=== PATIENT | male | born 1990 | race Caucasian/White ===

== ENCOUNTER 2020-08-24 13:04 | Outpatient (REF) | payer OTHER, SELFPAY | END 2020-08-24 13:05 | disposition home or self-care (01) | LOC: HO.LAB 13:04 | PROVIDERS: PCP Internal Medicine; Visit Provider Internal Medicine | DX: Z20.828 Contact with and (suspected) exposure to other viral communicable diseases (principal) | CPT/HCPCS: C9803; U0003 ==

== ENCOUNTER 2020-10-31 07:53 | Outpatient (REF) | payer OTHER, SELFPAY | END 2020-10-31 07:54 | disposition home or self-care (01) | LOC: HO.LAB 07:53 | PROVIDERS: Visit Provider Internal Medicine | DX: Z20.822 Contact with and (suspected) exposure to COVID-19 (principal) | CPT/HCPCS: 36415; C9803; U0003 ==

== ENCOUNTER 2020-11-24 08:48 | Outpatient (REF) | payer OTHER, SELFPAY | END 2020-11-24 08:49 | disposition home or self-care (01) | LOC: HO.LAB 08:48 | PROVIDERS: Visit Provider Internal Medicine | DX: Z20.822 Contact with and (suspected) exposure to COVID-19 (principal) | CPT/HCPCS: 36415; C9803; U0003; U0005 ==

== ENCOUNTER 2024-05-25 14:57 | Outpatient (AMB) | payer OTHER, SELFPAY ==
--- NOTE | 2024-05-25 15:11 | A.OFFPC_ITS ---
Vital Signs 05/25/24 15:20 Height 5 ft 11 in Weight 299 lb 6 oz BMI 41.7 BP 120/80 Blood Pressure Location Rt brachial Position Sitting Respiration 16 Pulse 88 Pulse Source Pulse Oximeter Temp 98 F Temp Source Tympanic Pulse Oximetry (%) 95 Oxygen Delivery Method Room Air Intake Visit Reasons: Re establish care/?Kidney Stone Intake Note: possible kidney stones pt was on a plane and felt a pop sensation while urinated on the plane then had a steady urine stream.lower left side back pain [id number]. Allergies Environmental/pollen Allergy (Unknown, Uncoded 10/17/20 09:53) Unknown Tobacco use date assessed: 05/25/24 Dental Screening Dental Screen Date: 05/25/24 Did you have a dental visit in the last 12 months?: Yes Did you have a dental problem in the last 6 months where you did not have access to dental care?: Yes Was dental information given to patient?: Patient has dentist HPI Re establish care/?Kidney Stone HPI Details New Patient? ?? Prior PCP:? [facility] Last office visit/CPE:? 3 yrs + Acute issue(s):? ? kidney stone ?? PMHx:? None SurgHx:? None FHx:? Mom: HTN, Kidney stones. Dad: unknown SocHx: No cigs. EtOH Rare 1-2 dr. OVERTON daily. No other drugs PFSH Surgical History (Updated 10/17/20 @ 09:53 by Adriana Fierro) No pertinent past surgical history Family History (Updated 10/17/20 @ 10:00 by Adriana Fierro) Father Medical history unknown Mother Hypertension Kidney stone Social History (Updated 05/25/24 @ 15:16 by Gwendolyn Rodriguez) Housing: Apartment Patient Tobacco Use Status: Never used Tobacco e-Cigarette/Vaping Use: Never Used Second Hand Smoke Exposure: No Use of substances other than those prescribed or required for medical reasons: Yes Substance Use Type: Marijuana service: No Current occupational status: employed Current occupation: retail Current occupational exposures/hazards: No Cognitive needs: No Hearing needs: Yes Vision needs: Yes Questionnaire PHQ-9 Over the last 2 weeks, how often have you been bothered by any of the following problems? 1. Little interest or pleasure in doing things: not at all 2. Feeling down, depressed, or hopeless: not at all 3. Trouble falling or staying asleep, or sleeping too much: not at all 4. Feeling tired or having little energy: not at all 5. Poor appetite or overeating: not at all 6. Feeling bad about yourself - or that you are a failure or have let yourself or your family down: not at all 7. Trouble concentrating on things, such as reading the newspaper or watching television: not at all 8. Moving or speaking so slowly that other people could have noticed. Or the opposite - being so fidgety or restless that you have been moving around a lot more than usual: not at all 9. Thoughts that you would be better off or of hurting yourself in some way: not at all Total score: 0 Depression Screening Interpretation: Negative Depression Screening Done: Yes 39552 - PHQ-9 Billing: Yes Source: Developed by Drs. Vidal Arita, Valeria Luciano, Tyler Beck and colleagues, with an educational micah from [employer]. Thrive Questionnaire Date Thrive assessed: 05/25/24 I am a: Patient What is your living situation today?: I have a steady place to live Within the past 12 months, did the food you bought not last and you didn't have the money to get more?: Never true Within the past 12 months, did you worry whether your food would run out before you got money to buy more?: Never true Do you have trouble paying for medicines?: No Do you have trouble getting transportation to medical appointments?: No Do you have trouble paying your heating and electricity bill?: No Do you have trouble taking care of your child, family member or friend?: No Do you have trouble with day-to-day activities such as bathing, preparing meals, shopping, managing finances, etc.?: No Are you currently unemployed and looking for a job?: No Are you interested in more education?: Yes Please select the resources that you would like help with: None Currently or been in a relationship where the following occur: No concerns reported THRIVE Score: 0 AUDIT C Alcohol Use Questionnaire (AUDIT-C) 1. How often do you have a drink containing alcohol?: Monthly or less 2. How many drinks containing alcohol do you have on a typical day when you are drinking?: 1 or 2 3. How often do you have six or more drinks on one occasion?: Less than monthly Total Score: 2 Score Reviewed/Action Taken: No DAGO-7 AMB Questionnaire DGAO-7 Date DAGO - 7 assessed: 05/25/24 Feeling nervous, anxious, or on edge: 0 = Not at all Not being able to stop or control worryin = Not at all Worrying too much about different things: 0 = Not at all Trouble relaxin = Not at all Being so restless that it is hard to sit still: 0 = Not at all Becoming easily annoyed or irritable: 0 = Not at all Feeling afraid as if something awful might happen: 0 = Not at all Total DAGO-7 score (0-4 normal; 5-9 mild; 10-14 moderate; 15-21 severe): 0 Source: Developed by Drs. Vidal Arita, Valeria Luciano, Tyler Beck and colleagues, with an educational micah from [employer]. DAGO-7 Assessment Billing DAGO-7 Assessment Tool: DAGO-7 Assessment 61190 Review of Systems Const Denies chills, Denies fatigue, Denies fever(s), Denies headache(s) and Denies weakness ENT Denies dizziness and Denies headache(s) Card Denies chest pain, Denies lightheadedness, Denies dyspnea and Denies other (Palpitations) Resp Denies cough, Denies dyspnea, Denies wheezing and Denies other ( shortness of breath) Musc Denies numbness and Denies tingling Neuro Denies dizziness, Denies headache(s), Denies numbness, Denies tingling, Denies paresthesias and Denies weakness Psych Denies anxiety and Denies depression Endo Denies fatigue Aller/Immun Denies wheezing Physical exam (Primary Care) Vital Signs: Last Vital Signs Temp 98 F 05/25/24 15:20 Pulse 88 05/25/24 15:20 Resp 16 05/25/24 15:20 BP 120/80 05/25/24 15:20 Pulse Ox 95 05/25/24 15:20 Oxygen Delivery Method Room Air 05/25/24 15:20 BMI result Body Mass Index 41.7 Tobacco/Smoking Status: Tobacco use Status Tobacco use date assessed 05/25/24 05/25/24 15:23 Patient Tobacco Use Status Never used Tobacco 05/25/24 15:23 e-Cigarette/Vaping Use Never Used 05/25/24 15:23 PHQ-9: PHQ-9 Score PHQ-9: Total score 0 05/25/24 15:39 Depression Screening Interpretation: Negative Thrive Assessment: Date of Thrive Assessment Date Thrive assessed 05/25/24 05/25/24 15:23 Currently or been in a relationship where the following occur: No concerns reported Const General: no acute distress and well developed Nutritional Appearance: obese morbidly obese Orientation/consciousness: patient oriented x3 HENMT Head: Yes normocephalic and Yes atraumatic Eyes General: appearance normal, both eyes and all related structures Pupils: Equal, round and reactive pupils present EOM: EOMs intact bilaterally Resp Effort & Inspection: normal respiratory effort Auscultation: clear to auscultation bilaterally Cardio Rate: regular rate Rhythm: regular rhythm Heart sounds: S1 normal heart sound present, S2 normal heart sound present, no gallops, no murmurs and no rubs Neuro General: patient oriented x3 and gait normal Cranial nerves: Yes Equal, round and reactive pupils present Psych Affect: normal affect Assessment and Plan Assessment & Plan (1) Hematuria: Code(s): R31.9 - Hematuria, unspecified Plan: History?of?hematuria?and?back?pain?and?patient?recounts?passing?more?solid?subst ance?from?penis?during?urination Possible?renal?stone?or?clot Repeating?urine?dip?and?will?send?urine?for?urinalysis Check?KUB Advised?patient?hydrate?well (2) Back pain: Code(s): M54.9 - Dorsalgia, unspecified Plan: History?of?back?pain?as?described?above No?pain?at?present As?above,?possible?stone?and?working?this?up (3) Laboratory exam ordered as part of routine general medical examination: Code(s): Z00.00 - Encounter for general adult medical examination without abnormal findings Plan: Check?labs Orders: Orders Comprehensive [place]. Panel Fast Today Z00.00 - Encounter for general adult medical examination without abnormal findings Lipid Panel Today Z00.00 - Encounter for general adult medical examination without abnormal findings TSH reflex Free T4 Today Z00.00 - Encounter for general adult medical examination without abnormal findings XR KUB Today M54.9 - Dorsalgia, unspecified, R31.9 - Hematuria, unspecified Urine Dipstick Today M54.9 - Dorsalgia, unspecified Microalbumin, Random (w Creat) Today I10 - Essential (primary) hypertension UA and rflx microscopic Today Z00.00 - Encounter for general adult medical examination without abnormal findings Coding Level of Care Code New Pt Level 3 (72616) Diagnoses Hematuria R31.9 Back pain M54.9 Laboratory exam ordered as part of routine general medical examination Z00.00 Additional Codes DAGO-7 Assessment Billing - DAGO-7 Assessment Tool: DAGO-7 Assessment 81951 ([id number])
[2024-05-25 15:20] VITALS: BP 120/80; PULSE 88; RESP 16; TEMP 36.6; O2SAT 95; BMI 41.7
== END 2024-05-25 16:11 | disposition home or self-care (01) ==
PROVIDERS: PCP Internal Medicine; Visit Provider Family Medicine
DX: R31.9 Hematuria, unspecified (principal); M54.9 Dorsalgia, unspecified
CPT/HCPCS: 99203

== ENCOUNTER 2024-05-27 07:42 | Outpatient (REF) | payer OTHER, SELFPAY ==
--- NOTE | ~2024-05-27 | XR_ITS ---
EXAMINATION: XR ABDOMEN KUB CLINICAL INDICATION: Hematuria COMPARISON: None available. TECHNIQUE: AP view of the abdomen. FINDINGS: The bowel gas pattern is normal with no evidence of ileus or obstruction. No unusual soft tissue calcifications are noted. The bones are unremarkable. XR/XR KUB IMPRESSION: Unremarkable examination.
[2024-05-27 08:56] LABS: Alanine Aminotransferase 36 U/L (0-40); Albumin Level 4.3 g/dL (3.5-5.0); Alkaline Phosphatase 44 U/L (39-117); Anion Gap 9 (12-20); Aspartate Amino Transferase 28 U/L (5-37); Bilirubin Total 0.5 mg/dL (0.0-1.0); Blood Urea Nitrogen 12 mg/dL (9-16); Carbon Dioxide 31 mmol/L (22-29); Chloride 103 mmol/L (96-108); Cholesterol 147 mg/dL (<200); Estimated Glomerular Filt Rate > 60; Glucose Fasting 101 mg/dL (60-99); HDL Cholesterol 32 mg/dL (>40); LDL Cholesterol Calculated 92 mg/dL (<100); Sodium 139 mmol/L (135-145); Total Protein 7.1 g/dL (6.5-8.0); Triglycerides 117 mg/dL (<150)
[2024-05-27 09:14] LABS: TSH reflex Free T4 1.67 uIU/mL (0.32-4.0)
== END 2024-05-27 07:43 | disposition home or self-care (01) ==
LOC: HO.XRAY 07:42
PROVIDERS: PCP Family Medicine; Visit Provider Family Medicine
DX: Z00.00 Encounter for general adult medical examination without abnormal findings (principal); Z13.6 Encounter for screening for cardiovascular disorders; R31.9 Hematuria, unspecified; M54.9 Dorsalgia, unspecified; I10 Essential (primary) hypertension
CPT/HCPCS: 36415; 74018; 80053; 80061; 84443

== ENCOUNTER 2024-06-24 08:28 | Outpatient (AMB) | payer OTHER, SELFPAY ==
--- NOTE | 2024-06-24 08:36 | A.OFFPC_ITS ---
Vital Signs 06/24/24 08:37 Height 5 ft 11 in Weight 295 lb 6 oz BMI 41.2 BP 118/78 Blood Pressure Location Rt brachial Position Sitting Respiration 16 Pulse 58 Pulse Source Pulse Oximeter Pulse Oximetry (%) 98 Oxygen Delivery Method Room Air Intake Visit Reasons: Annual exam Intake Note: Physical Milieu Counselor Required: No Accompanied by: Child Allergies Environmental/pollen Allergy (Unknown, Uncoded 06/24/24 08:36) Unknown Tobacco use date assessed: 05/25/24 Dental Screening Dental Screen Date: 05/25/24 HPI HPI Comments History of Present Illness Details This is a 33 year old male presenting for CPE. PCP is Dr. Anderson. His 3 year old son accompanied him to the visit. Patient was evaluated by his primary care provider in May after possibly passing a kidney stone. Patient reminded he needs to have urine studies done. He has had no further symptoms since that event. KUB was negative. Denies hematuria. A1C ordered due to mildly IFG. No family history of DM. Patient reports left ear infection last September and went to a concert 2 weeks later that was loud and has ringing in the left ear since then but denies hearing loss or pain. Referred to ENT. He has lost about 30 lb in the past few months by modifying his diet and interm ittent fasting. We reviewed his recent labs including low HDL cholesterol. Lifestyle modifications were reviewed. ROS: Constitutional: No unexplained weight loss, fever, chills, fatigue or night sweats. Eyes: No vision changes, blurry vision, double vision, eye pain, eye redness, eye discharge. ENT: No hearing loss, sneezing, congestion, runny nose or sore throat. Respiratory: No shortness of breath, cough or sputum production. Cardiovascular: No chest pain, chest pressure or chest discomfort. No palpitations or pedal edema. Gastrointestinal: No anorexia, nausea, vomiting or diarrhea. No abdominal pain or blood in stool. Genitourinary: No dysuria, hematuria, urinary frequency. Neurologic: No headache, dizziness, syncope, unilateral weakness, ataxia, numbness or tingling in the extremities. Musculoskeletal: No muscle pain, back pain, joint pain or swelling. Hematologic/Lymphatics: No bleeding or bruising. No painful lymph nodes. Skin: No rash or itching. Endocrine: No cold or heat intolerance. No polyuria or polydipsia. Psychiatric: No depression or anxiety. No SI/HI. Physical exam: Constitutional: Alert, in no distress. Head: Normocephalic. Eyes: Pupils are equal, round and reactive to light. Extraocular muscles intact. Ear, Nose and Throat: Canals clear. TMs normal. Normal nasal mucosa. No nasal discharge. No oral lesions. Neck: Supple, Full range of motion. No lymphadenopathy. No palpable thyroid masses. Respiratory: Clear to auscultation. Cardiovascular: S1 S2 regular. No murmurs. Gastrointestinal: Abdomen soft, non-tender, non-distended. Normal bowel sounds. No palpable masses. Genitourinary: Patient deferred. Neurologic: No focal neurological deficits. Symmetric patellar reflexes. Moves all extremities spontaneously. Sensation intact bilaterally. Skin: No rashes Musculoskeletal: No gross deformities. Normal range of motion. Extremities: Warm and well perfused. No clubbing, cyanosis or edema. 3+ peripheral pulses bilaterally. Psychiatric: Normal mood and affect [facility] Medical History (Updated 06/24/24 @ 11:22 by DASHA Cerrato) IFG (impaired fasting glucose) Tinnitus, left ear Surgical History (Updated 10/17/20 @ 09:53 by Adriana Fierro) No pertinent past surgical history Family History (Updated 10/17/20 @ 10:00 by Adriana Fierro) Father Medical history unknown Mother Hypertension Kidney stone Social History (Updated 05/25/24 @ 15:16 by Gwendolyn Rodriguez) Housing: Apartment Patient Tobacco Use Status: Never used Tobacco e-Cigarette/Vaping Use: Never Used Second Hand Smoke Exposure: No Substance Use Type: Marijuana service: No Current occupational status: employed Current occupation: retail Current occupational exposures/hazards: No Cognitive needs: No Hearing needs: Yes Vision needs: Yes Questionnaire PHQ-9 Over the last 2 weeks, how often have you been bothered by any of the following problems? 1. Little interest or pleasure in doing things: not at all 2. Feeling down, depressed, or hopeless: not at all 3. Trouble falling or staying asleep, or sleeping too much: not at all 4. Feeling tired or having little energy: not at all 5. Poor appetite or overeating: not at all 6. Feeling bad about yourself - or that you are a failure or have let yourself or your family down: not at all 7. Trouble concentrating on things, such as reading the newspaper or watching television: not at all 8. Moving or speaking so slowly that other people could have noticed. Or the opposite - being so fidgety or restless that you have been moving around a lot more than usual: not at all 9. Thoughts that you would be better off or of hurting yourself in some way: not at all Total score: 0 Depression Screening Interpretation: Negative Depression Screening Done: Yes 13965 - PHQ-9 Billing: Yes Source: Developed by Drs. Vidal Arita, Valeria Luciano, Tyler Beck and colleagues, with an educational micah from [email or web address]. Thrive Questionnaire Date Thrive assessed: 06/24/24 I am a: Patient What is your living situation today?: I have a steady place to live Within the past 12 months, did the food you bought not last and you didn't have the money to get more?: Never true Within the past 12 months, did you worry whether your food would run out before you got money to buy more?: Never true Do you have trouble paying for medicines?: No Do you have trouble getting transportation to medical appointments?: No Do you have trouble paying your heating and electricity bill?: No Do you have trouble taking care of your child, family member or friend?: No Do you have trouble with day-to-day activities such as bathing, preparing meals, shopping, managing finances, etc.?: No Are you currently unemployed and looking for a job?: No Are you interested in more education?: No Please select the resources that you would like help with: None Currently or been in a relationship where the following occur: No concerns reported THRIVE Score: 0 DAGO-7 AMB Questionnaire DAGO-7 Date DAGO - 7 assessed: 06/24/24 Feeling nervous, anxious, or on edge: 0 = Not at all Not being able to stop or control worryin = Not at all Worrying too much about different things: 0 = Not at all Trouble relaxin = Not at all Being so restless that it is hard to sit still: 0 = Not at all Becoming easily annoyed or irritable: 0 = Not at all Feeling afraid as if something awful might happen: 0 = Not at all Total DAGO-7 score (0-4 normal; 5-9 mild; 10-14 moderate; 15-21 severe): 0 Source: Developed by Drs. Vidal Arita, Valeria Luciano, Tyler Beck and colleagues, with an educational micah from [email or web address]. DAGO-7 Assessment Billing DAGO-7 Assessment Tool: DAGO-7 Assessment 58772 Physical exam (Primary Care) Vital Signs: Last Vital Signs Pulse 58 06/24/24 08:37 Resp 16 06/24/24 08:37 BP 118/78 06/24/24 08:37 Pulse Ox 98 06/24/24 08:37 Oxygen Delivery Method Room Air 06/24/24 08:37 BMI result Body Mass Index 41.2 Tobacco/Smoking Status: Tobacco use Status Tobacco use date assessed 05/25/24 06/24/24 08:40 Patient Tobacco Use Status Never used Tobacco 06/24/24 08:40 e-Cigarette/Vaping Use Never Used 06/24/24 08:40 PHQ-9: PHQ-9 Score PHQ-9: Total score 0 06/24/24 09:07 Depression Screening Interpretation: Negative Thrive Assessment: Date of Thrive Assessment Date Thrive assessed 06/24/24 06/24/24 08:41 Currently or been in a relationship where the following occur: No concerns reported Assessment and Plan Assessment & Plan (1) Routine physical examination: Code(s): Z00.00 - Encounter for general adult medical examination without abnormal findings (2) IFG (impaired fasting glucose): Code(s): R73.01 - Impaired fasting glucose Plan Patient is seen today for a routine physical. As part of this visit we reviewed the following issues, which are considered and essential part of preventative health in this age group: - Testicular cancer screening, which includes self exam teaching - Blood pressure screening - Cholesterol screening - Nutritional and exercise counseling - Counseling of injury prevention including fire prevention, smoke alarms and seat belt usage - Screening for depression - Prevention of and/or testing for infectious diseases - Education about skin cancer - Recommendations about immunizations - Recommendation of an eye exam - Screening for substance abuse - Genetic cancer risk screening Follow up in 1 year for CPE. Orders: Orders Hemoglobin A1c Today R73.01 - Impaired fasting glucose Referrals Ear/Nose/Throat Referral H93.12 - Tinnitus, left ear Coding Level of Care Code Est Pt Prev Care 18-39y(83236) Diagnoses Routine physical examination Z00.00 IFG (impaired fasting glucose) R73.01 Additional Codes DAGO-7 Assessment Billing - DAGO-7 Assessment Tool: DAGO-7 Assessment 79443 ([id number])
[2024-06-24 08:37] VITALS: BP 118/78; PULSE 58; RESP 16; O2SAT 98; BMI 41.2
== END 2024-06-24 09:02 | disposition home or self-care (01) ==
PROVIDERS: PCP Internal Medicine; Visit Provider Physician Assistant Medical
DX: Z00.00 Encounter for general adult medical examination without abnormal findings (principal); R73.01 Impaired fasting glucose
CPT/HCPCS: 99395

== ENCOUNTER 2024-07-15 08:18 | Outpatient (REF) | payer OTHER, SELFPAY ==
[2024-07-15 09:27] LABS: Estimated Average Glucose 105 mg/dL; Hemoglobin A1c % 5.3 % (<6.0)
== END 2024-07-15 08:19 | disposition home or self-care (01) ==
LOC: HO.LAB 08:18
PROVIDERS: PCP Family Medicine; Visit Provider Physician Assistant Medical
DX: R73.01 Impaired fasting glucose (principal)
CPT/HCPCS: 36415; 83036

== ENCOUNTER 2025-08-04 13:41 | Outpatient (AMB) | payer OTHER, SELFPAY ==
--- NOTE | 2025-08-04 13:44 | A.OFFPC_ITS ---
Vital Signs 08/04/25 13:45 Height 5 ft 11 in Weight 278 lb BMI 38.8 BP 114/78 Blood Pressure Location Rt brachial Position Sitting Respiration 16 Pulse 90 Pulse Source Pulse Oximeter Temp 97.8 F Temp Source Oral Pulse Oximetry (%) 97 Oxygen Delivery Method Room Air Intake Visit Reasons: CPE Intake Note: physical Allergies Environmental/pollen Allergy (Unknown, Uncoded 06/24/24 08:36) Unknown Tobacco use date assessed: 05/25/24 Dental Screening Dental Screen Date: 08/04/25 Did you have a dental visit in the last 12 months?: Yes Did you have a dental problem in the last 6 months where you did not have access to dental care?: No Was dental information given to patient?: Patient has dentist HPI CPE HPI Details Pt is a 34 y/o male who presents today for a cpe. He has a history of kidney stones and impaired fasting glucose. Endo: Last A1c was WNL. No signs of prediabetes. He has been working hard on diet and weight loss this past year. General: States that he is exercising and eating healthy and increasing his hydration. Uro: Has not had an issue with kidney stones in over a year. States that he did have an ultrasound which was negative. Fam hx: denies [facility] Medical History (Updated 06/24/24 @ 11:22 by DASHA Cerrato) IFG (impaired fasting glucose) Tinnitus, left ear Surgical History (Updated 10/17/20 @ 09:53 by Adriana Fierro) No pertinent past surgical history Family History (Updated 10/17/20 @ 10:00 by Adriana Fierro) Father Medical history unknown Mother Hypertension Kidney stone Social History (Updated 05/25/24 @ 15:16 by Gwendolyn Rodriguez [facility]) Housing: Apartment Patient Tobacco Use Status: Never used Tobacco e-Cigarette/Vaping Use: Never Used Second Hand Smoke Exposure: No Substance Use Type: Marijuana service: No Current occupational status: employed Current occupation: retail Current occupational exposures/hazards: No Cognitive needs: No Hearing needs: Yes Vision needs: Yes Questionnaire PHQ-9 Over the last 2 weeks, how often have you been bothered by any of the following problems? 1. Little interest or pleasure in doing things: not at all 2. Feeling down, depressed, or hopeless: not at all 3. Trouble falling or staying asleep, or sleeping too much: not at all 4. Feeling tired or having little energy: not at all 5. Poor appetite or overeating: not at all 6. Feeling bad about yourself - or that you are a failure or have let yourself or your family down: not at all 7. Trouble concentrating on things, such as reading the newspaper or watching television: not at all 8. Moving or speaking so slowly that other people could have noticed. Or the opposite - being so fidgety or restless that you have been moving around a lot more than usual: not at all 9. Thoughts that you would be better off or of hurting yourself in some way: not at all Total score: 0 Depression Screening Interpretation: Negative Depression Screening Done: Yes 68304 - PHQ-9 Billing: Yes Source: Developed by Drs. Vidal Arita, Valeria Luciano, Tyler Beck and colleagues, with an educational micah from [employer]. Thrive Questionnaire Date Thrive assessed: 06/27/25 I am a: Patient What is your living situation today?: I have a steady place to live Within the past 12 months, did the food you bought not last and you didn't have the money to get more?: Never true Within the past 12 months, did you worry whether your food would run out before you got money to buy more?: Never true Do you have trouble paying for medicines?: No Do you have trouble getting transportation to medical appointments?: Yes Do you have trouble paying your heating and electricity bill?: No Do you have trouble taking care of your child, family member or friend?: No Do you have trouble with day-to-day activities such as bathing, preparing meals, shopping, managing finances, etc.?: No Are you currently unemployed and looking for a job?: No Are you interested in more education?: No Please select the resources that you would like help with: None Currently or been in a relationship where the following occur: No concerns reported THRIVE Score: 1 AUDIT C Alcohol Use Questionnaire (AUDIT-C) 1. How often do you have a drink containing alcohol?: Monthly or less 2. How many drinks containing alcohol do you have on a typical day when you are drinking?: 1 or 2 3. How often do you have six or more drinks on one occasion?: Never Total Score: 1 DAGO-7 AMB Questionnaire DAGO-7 Date DAGO - 7 assessed: 06/24/24 Source: Developed by Drs. Vidal Arita, Valeria Luciano, Tyler Beck and colleagues, with an educational micah from [employer]. Physical exam (Primary Care) Vital Signs: Last Vital Signs Temp 97.8 F 08/04/25 13:45 Pulse 90 08/04/25 13:45 Resp 16 08/04/25 13:45 BP 114/78 08/04/25 13:45 Pulse Ox 97 08/04/25 13:45 Oxygen Delivery Method Room Air 08/04/25 13:45 BMI result Body Mass Index 38.8 Tobacco/Smoking Status: Tobacco use Status Tobacco use date assessed 05/25/24 08/04/25 13:54 Patient Tobacco Use Status Never used Tobacco 08/04/25 13:54 e-Cigarette/Vaping Use Never Used 08/04/25 13:54 PHQ-9: PHQ-9 Score PHQ-9: Total score 0 08/04/25 13:55 Depression Screening Interpretation: Negative Thrive Assessment: Date of Thrive Assessment Date Thrive assessed 06/27/25 08/04/25 13:54 Currently or been in a relationship where the following occur: No concerns reported Const Orientation/consciousness: patient oriented x3 HENMT Ears: hearing grossly normal bilaterally and TM's normal bilaterally General nose exam: No nasal polyps present Face and sinus: Yes sinuses nontender Mouth: Normal oral and palatal mucosa present Eyes Pupils: Equal, round and reactive pupils present EOM: EOMs intact bilaterally Neck Neck: Yes full ROM and Yes no lymphadenopathy Thyroid: Thyroid normal Chest Chest palpation & inspection: normal inspection of the chest Resp Auscultation: clear to auscultation bilaterally Cardio Rate: regular rate Rhythm: regular rhythm Heart sounds: S1 normal heart sound present and S2 normal heart sound present Peripheral pulses: Peripheral pulses 2+ throughout GI Other: Soft, nontender Auscultation: normal bowel sounds Rectal Exam - Male: Yes deferred General: Yes no CVA tenderness Back/Spine/Pelvis Other: Nontender Back: no CVA tenderness Skin General skin exam: no rashes or lesions noted Neuro General: patient oriented x3, gait normal, CN's II-XI intact bilaterally and deep tendon reflexes 2+ bilaterally Cranial nerves: Yes Equal, round and reactive pupils present Motor exam (neuro): 5/5 motor strength present throughout Sensory Exam: double simultaneous stimulation for sensation normal Coordination: [id number] test normal and Romberg test negative Extrem General: Yes normal to inspection and Yes full ROM Psych Affect: normal affect Attitude: cooperative Thought process: Normal thought process present Thought content: Normal thought content present Insight: Good insight present (Psych) Judgement: Good judgement present (Psych) Coding Level of Care Code Est Pt Prev Care 18-39y(51616) Diagnoses Routine general medical examination at a health care facility Z00.00 IFG (impaired fasting glucose) R73.01 Additional Codes PHQ-9 - 48357 - PHQ-9 Billing: Yes ([id number]) Assessment & Plan Assessment & Plan (1) Routine general medical examination at a health care facility: Code(s): Z00.00 - Encounter for general adult medical examination without abnormal findings Plan: Health maintenance reviewed Labs ordered He will get flu shot at work next week (2) IFG (impaired fasting glucose): Code(s): R73.01 - Impaired fasting glucose Category: Medical Plan: A1c ordered Orders: Orders Complete Blood Count Auto Diff Today Z00.00 - Encounter for general adult medical examination without abnormal findings Hemoglobin A1c Today R73.01 - Impaired fasting glucose, Z00.00 - Encounter for general adult medical examination without abnormal findings UA CC w/rflx Micro + Cult Today R30.0 - Dysuria, Z00.00 - Encounter for general adult medical examination without abnormal findings Comprehensive [place]. Panel Fast Today Z00.00 - Encounter for general adult medical examination without abnormal findings Lipid Panel Today Z00.00 - Encounter for general adult medical examination without abnormal findings TSH reflex Free T4 Today Z00.00 - Encounter for general adult medical examination without abnormal findings
[2025-08-04 13:45] VITALS: BP 114/78; PULSE 90; RESP 16; TEMP 36.6; O2SAT 97; BMI 38.8
== END 2025-08-04 14:15 | disposition home or self-care (01) ==
LOC: HO.HMCFM 13:41
PROVIDERS: PCP Family Medicine; Visit Provider Physician Assistant
DX: Z00.00 Encounter for general adult medical examination without abnormal findings (principal); R73.01 Impaired fasting glucose

== ENCOUNTER → 2025-08-04 13:41 | Outpatient (BNVA) | payer OTHER, SELFPAY | PROVIDERS: PCP Family Medicine; Visit Provider Physician Assistant | DX: Z00.00 Encounter for general adult medical examination without abnormal findings (principal); R73.03 Prediabetes | CPT/HCPCS: 96127 ==